=== PATIENT | female | born 1950 | race African-American/Black ===

== ENCOUNTER 2018-07-17 04:09 | Emergency (ER) | payer MEDICARE ==
--- NOTE | 2018-07-17 04:19 | ER Document Report ---
ED General - General Stated Complaint: UNRESPONSIVE Time Seen by Provider: 07/17/18 04:15 Notes: Patient is a 68-year-old female who was found unresponsive in her garage. I did speak with family and they are unsure how long she had been lying there in a garage unresponsive. Compared makes arrived she had no pulse and was in asystole. They gave her a total of 8 mg of epinephrine as well as amp of bicarb. On all her pulse check she was in asystole. Her pupils have been fixed and dilated from the time that they first found her. She has had no purposeful movement whatsoever. He said when they got to her she was already cold and they were unsure if this was because she was in a garage or because she had been down for a long period of time. Past Medical History - Social History Smoking Status: Unknown if Ever Smoked Frequency of alcohol use: unknown Drug Abuse: Other - unknown Family History: Reviewed & Not Pertinent Review of Systems - Review of Systems -: Yes ROS unobtainable due to patient's medical condition - Unresponsive Physical Exam - Notes Notes: General Appearance: Unresponsive. Vitals: reviewed, See vital signs table. Head: no swelling or tenderness to the head Eyes: Pulse fixed and dilated. Mouth: No decreasd moisture Throat: Wilbert airway in place. Lungs: Lung carrera diminished with bagging through Wilbert airway and therefore remove the Wilbert airway and ventilated patient with bag mask ventilation which provided better ventilation. Heart: Pulseless. Asystolic on the monitor. Abdomen: Abdomen is soft. Extremities: Pulses in extremities. No central pulses. Skin: Skin is cold and bland. Neuro: Completely unresponsive. Pupils fixed and dilated. No purposeful movement. No gagging on the Wilbert airway. Patient is pulseless. Course - Re-evaluation Re-evalutation: 07/17/18 04:18 Patient presents after receiving a rounds of epi, bicarb, and has remained in asystole the entire time. She was found down with unknown downtime. Her pupils are fixed and dilated. She continues to be in asystole. Bedside ultrasound shows no evidence of cardiac motion. 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 I therefore pronounced patient . Spoke with family and answered all questions to the best of my ability. Dictation of this chart was performed using voice recognition software; therefore, there may be some unintended grammatical errors. 07/17/18 05:18 Discharge - Discharge Clinical Impression: Asystole Disposition: Referrals: LOCALMD,NO [NO LOCAL MD] - Follow up as needed
== END 2018-07-17 06:45 | disposition expired ==
LOC: ER 04:09
DX: I46.9 Cardiac arrest, cause unspecified (principal)
CPT/HCPCS: 92950; 99285